=== PATIENT | male | born 1945 | race Caucasian/White ===

== ENCOUNTER 2016-06-02 23:28 | Emergency (ER) | payer MEDICARE, OTHER ==
[2016-06-02 22:01] LABS: BASOPHILS 0.2 %; BASOPHILS ABSOLUTE 0.01 10/3/uL (0.0-0.16); EOSINOPHILS 0.7 %; EOSINOPHILS ABSOLUTE 0.04 10/3/uL (0.0-0.53); ER CBC TAT 0 Hrs 11 Mins; HEMOGLOBIN 11.5 g/dL (13.6-17.8); IMMATURE GRANULOCYTES 0.2 %; IMMATURE GRANULOCYTES ABSOLUTE 0.01 10/3/uL (0.0-0.11); LYMPHOCYTES 7.5 %; MEAN CORPUS HGB CONC 33.8 g/dL (32.0-36.0); MEAN CORPUSCULAR HEMOGLOB 31.3 pg (26.0-34.0); MEAN CORPUSCULAR VOLUME 92.6 fL (80-100); MEAN PLATELET VOLUME 9.2 fL (9.2-13.0); MONOCYTES 12.7 %; MONOCYTES ABSOLUTE 0.68 10/3/uL (0.21-1.20); NEUTROPHILS 78.7 %; NEUTROPHILS ABSOLUTE 4.21 10/3/uL (2.02-8.40); PLATELET COUNT 175 10/3/uL (150-400); RBC DISTRIBUTION WIDTH 13.8 % (12.0-16.0); RED CELL COUNT 3.67 10/6/uL (4.7-6.1); WHITE BLOOD CELLS 5.4 10/3/uL (4.5-10.5)
[2016-06-02 22:03] LABS: MANUAL DIFF NO %
[2016-06-02 22:11] LABS: ALBUMIN 3.5 G/DL (3.5-5.0); ALKALINE PHOSPHATASE 76 U/L (45-117); CALCIUM, SERUM 9.3 MG/DL (8.5-10.4); CHLORIDE, SERUM 105 MMOL/L (96-112); CO2 (CARBON DIOXIDE) 26 MMOL/L (24-34); CREATININE 1.88 MG/DL (0.70-1.30); GFR AFRICAN AMERICAN 40 ML/MIN (>=60); GFR NON AFRICAN AMERICAN 35 ML/MIN (>=60); POTASSIUM, SERUM 4.4 MMOL/L (3.5-5.3); SGOT(AST) 17 U/L (5-40); SGPT(ALT) 22 U/L (5-65); SODIUM, SERUM 140 MMOL/L (135-148); TOTAL PROTEIN 7.2 G/DL (6.0-8.5)
[2016-06-02 22:14] LABS: A/G RATIO 0.9 (0.7-1.9); BUN (BLOOD UREA NITROGEN) 21 MG/DL (6-23); GLOBULIN 3.7 G/DL (2.5-4.1); GLUCOSE, SERUM 158 MG/DL (60-99); TOTAL BILIRUBIN 0.6 MG/DL (0-1.2)
[2016-06-02 22:30] LABS: ASCORBIC ACID (UR NOT ORDER) NEG (NEG); BILIRUBIN, URINE NEGATIVE (NEG); ER URINALYSIS TAT 0 Hrs 14 Mins; KETONE, URINE NEGATIVE (NEG); LEUKOCYTE ESTERASE(NOT OR LARGE (NEG)
[2016-06-02 22:31] LABS: NITRITE (URINE) NEG (NEG); WBC (NOT ORDERED) (RFLEX) > 182 (0-5)
[~2016-06-02 23:28] MED LIST: ADVIL PO; ASAB PO; ATEN25 PO; ATEN50 PO; ATV.5 PO; BENTYL10 PO; CIP5 PO; COZ50 PO; COZAAR100 MG PO; FISH-EPA1000 MG PO; GINGER ROOT PO; L5 PO; LIBRIUM; MULTIPLE VIT PO; MULTIVITAMI1 PO; NORV10 PO; NORV5 PO; PRILOSEC; PRILOSEC40 MG PO; TRICOR145 PO; VIT A PO; VITE PO; ZOL50 PO; ZOLOFT25 MG PO; [UNRECOGNIZED DRUG - OTHER] PO
[2016-07-08] MEDS ORDERED: NORV5 PO (14:09)
[2016-07-08] MEDS ORDERED: MULTIVIT/MIN PO (14:10)
[2016-07-08] MEDS ORDERED: ASAB PO (14:10)
[2016-07-08] MEDS ORDERED: ATV.5 PO (14:10)
[2016-07-08] MEDS ORDERED: FLOMAX4 PO (14:11)
[2016-07-08] MEDS ORDERED: FISH-EPA1000 MG PO (14:11)
[2016-07-08] MEDS ORDERED: ZOL50 PO (14:11)
[2016-07-08] MEDS ORDERED: PRILOSEC40 MG PO (14:12)
[2016-07-08] MEDS ORDERED: L5 PO (14:13)
[2016-09-18] MEDS ORDERED: ALEVE220 MG PO (13:43)
== END 2016-06-02 23:45 | disposition home or self-care (01) ==
LOC: ER 23:28
PROVIDERS: Nurse Practitioner Acute Care
DX: N39.0 Urinary tract infection, site not specified (principal); K21.9 Gastro-esophageal reflux disease without esophagitis; N18.9 Chronic kidney disease, unspecified; Z79.82 Long term (current) use of aspirin; Z79.899 Other long term (current) drug therapy
CPT/HCPCS: 71010; 80053; 81001; 83605; 83690; 85025; 87040; 87077; 87086; 87186; 93005; 96374; 99285

== ENCOUNTER 2016-07-12 07:45 | Day surgery (SDC) | payer MEDICARE, OTHER ==
--- NOTE | ~2016-07-12 | EGD ---
EGD REPORT [facility] [address] [id number] NAME: NIXON EUCEDA : [birth year] STATUS : REG [facility]#: [id number] AGE: 71 ADM/REG DATE : 07/12/16 MR#: [id number] REPORT SERV DATE: 07/12/16 DICTATED BY: JUSTYNA BARKER DATE: 07/12/16 REPORT STATUS : Draft TRANSCRIBED BY: [employer] DATE: 07/12/16 [facility] Patient Name: Nixon Euceda Date of : 1945 Attending MD: JUSTYNA BARKER MD Procedure Date No Time: 07/12/2016 Procedure: Upper GI endoscopy Indications: Abdominal pain in the left upper quadrant, Heartburn, Suspected esophageal reflux, Unexplained chest pain Referring MD: TYLER CUEVAS MD Medicines: as per anesthesia Complications: No immediate complications. Procedure: Pre-Anesthesia Assessment: - ASA Grade Assessment: II - A patient with mild systemic disease. After obtaining informed consent, the endoscope was passed under direct vision. Throughout the procedure, the patient's blood pressure, pulse, and oxygen saturations were monitored continuously. The GIF [id number] was introduced through the mouth, and advanced to the third part of duodenum. The upper GI endoscopy was accomplished without difficulty. The patient tolerated the procedure well. Findings: The examined esophagus was normal. The entire examined stomach was normal. The cardia and gastric fundus were normal on retroflexion. The examined duodenum was normal. Impression: - Normal esophagus. - Normal stomach. - Normal examined duodenum. Recommendation: - Follow an antireflux regimen. - Continue present medications. Procedure Code(s): --- Professional --- 29885, Esophagogastroduodenoscopy, flexible, transoral; diagnostic, including collection of specimen(s) by brushing or washing, when performed (separate procedure) Diagnosis Code(s): --- Professional --- R10.12, Left upper quadrant pain R12, Heartburn EGD REPORT [facility] [address] [facility] [id number] NAME: NIXON EUCEDA : [birth year] STATUS : REG [facility] PAT#: [id number] AGE: 71 ADM/REG DATE : 07/12/16 MR#: [id number] REPORT SERV DATE: 07/12/16 DICTATED BY: JUSTYNA BARKER. DATE: 07/12/16 REPORT STATUS : Draft TRANSCRIBED BY: [employer] DATE: 07/12/16 R07.9, Chest pain, unspecified CPT copyright 2013 [employer]. All rights reserved. The codes documented in this report are preliminary and upon furniture servicer review may be revised to meet current compliance requirements. JUSTYNA BARKER MD 07/12/2016 10:11 AM This report has been signed electronically. Number of Addenda: 0 Note Initiated On: 07/12/2016 9:56 AM Scope Withdrawal Time 0 hours 0 minutes 0 seconds [id number] [facility] [place] [id number]
[~2016-07-12 07:45] MED LIST changes: +FLOMAX4 PO; +MULTIVIT/MIN PO
[2016-09-18] MEDS ORDERED: ALEVE220 MG PO (13:43)
== END 2016-07-12 23:59 | disposition home or self-care (01) ==
LOC: DMU 07:45
PROVIDERS: Internal Medicine Gastroenterology
PROC: 0DJ08ZZ Inspection of Upper Intestinal Tract, Via Natural or Artificial Opening Endoscopic (ICD-10-PCS; principal; 2016-07-12 12:30)
DX: R10.12 Left upper quadrant pain (principal); R12 Heartburn; R07.9 Chest pain, unspecified; I10 Essential (primary) hypertension; N40.0 Benign prostatic hyperplasia without lower urinary tract symptoms; K21.9 Gastro-esophageal reflux disease without esophagitis; I25.10 Atherosclerotic heart disease of native coronary artery without angina pectoris; Z95.5 Presence of coronary angioplasty implant and graft; Z79.899 Other long term (current) drug therapy